=== PATIENT | female | born 1945 | race Caucasian/White ===

== ENCOUNTER → 2016-04-07 | Outpatient (CLI) | payer MEDICARE, OTHER ==
--- NOTE | 2016-04-07 11:07 | XR ---
EXAMINATION TYPE: XR chest 2V DATE OF EXAM: 04/07/2016 10:58 AM COMPARISON: 07/02/14 HISTORY: Shortness of breath TECHNIQUE: Frontal and lateral views of the chest are obtained. FINDINGS: Scattered senescent parenchymal changes noted. Hyperinflation compatible with COPD. No evidence for infiltrate. No evidence for atelectasis. Heart size is stable. Mediastinal structures are stable and grossly unremarkable. No evidence for hilar prominence. Degenerative changes dorsal spine. IMPRESSION: 1. No evidence for acute pulmonary disease.
[2016-04-07 11:24] LABS: ALT 80 U/L (9-52); AST 54 U/L (14-36); Alkaline Phosphatase 84 U/L (38-126); Anion Gap 12 mmol/L; Blood Urea Nitrogen 24 mg/dL (7-17); Calcium 9.5 mg/dL (8.4-10.2); Carbon Dioxide 26 mmol/L (22-30); Chloride 102 mmol/L (98-107); Cholesterol 145 mg/dL (<200); Glucose 271 mg/dL (74-99); HDL Cholesterol 41 mg/dL (40-60); Non-African American GFR(MDRD) >60 (>60 ml/min/1.73 sqM); Potassium 4.2 mmol/L (3.5-5.1); Sodium 140 mmol/L (137-145); Total Bilirubin 0.7 mg/dL (0.2-1.3); Total Protein 7.3 g/dL (6.3-8.2); Triglycerides 138 mg/dL (<150)
[2016-04-07 11:28] LABS: CH 28.6; CHCM 33.9; HDW 2.76; MCH 28.9 pg (25.0-35.0); MCHC 34.2 g/dL (31.0-37.0); MCV 84.6 fL (80.0-100.0); Mean Platelet Volume 8.5; RBC 4.85 m/uL (3.80-5.40); RDW 12.5 % (11.5-15.5); WBC 6.8 k/uL (3.8-10.6)
[2016-04-07 11:57] LABS: Hemoglobin A1C 9.4 % (4.2-6.1)
== END | disposition home or self-care (01) ==
LOC: LABWHC1 10:02
PROVIDERS: ATTEND Internal Medicine
DX: I11.9 Hypertensive heart disease without heart failure (principal); Z00.01 Encounter for general adult medical examination with abnormal findings; E11.9 Type 2 diabetes mellitus without complications; K21.0 Gastro-esophageal reflux disease with esophagitis
CPT/HCPCS: 36415; 71020; 80053; 80061; 83036; 84439; 84443; 85027

== ENCOUNTER 2016-06-17 15:07 | Inpatient (IN) | payer MEDICARE, OTHER ==
--- NOTE | 2016-06-17 15:35 | ED ---
General Adult HPI - General Chief complaint: Chest Pain Stated complaint: Chest Pain Time Seen by Provider: 06/17/16 15:28 Source: patient, RN notes reviewed, old records reviewed Mode of arrival: ambulatory Limitations: no limitations - History of Present Illness Initial comments: This is a 71-year-old female here with anterior chest pain. Mild anterior chest pain for starting today. Patient has history of diabetes has history of high blood pressure. Previous cardiac evaluations have been negative. Patient' s the pain is not made worse with any activity. No shortness of breath no diaphoresis no recent fever or cough or congestion. - Related Data Home Medications Medication Instructions Recorded Confirmed Atenolol [Tenormin] 50 mg PO BID 06/16/14 06/17/16 Hydrochlorothiazide [Hydrodiuril] 25 mg PO DAILY 06/16/14 06/17/16 Lisinopril 40 mg PO DAILY 06/16/14 06/17/16 Pravastatin Sodium [Pravachol] 20 mg PO HS 06/16/14 06/17/16 Loratadine [Claritin] 10 mg PO DAILY PRN 06/17/16 06/17/16 Omeprazole 20 mg PO DAILY 06/17/16 06/17/16 amLODIPine [Norvasc] 5 mg PO DAILY 06/17/16 06/17/16 metFORMIN HCL ER [Glucophage Xr] 500 mg PO BID 06/17/16 06/17/16 sitaGLIPtin [Januvia] 100 mg PO DAILY 06/17/16 06/17/16 Allergies Allergy/AdvReac Type Severity Reaction Status Date / Time adhesive tape Allergy Rash/Hives Verified 06/17/16 15:44 Penicillins Allergy Rash/Hives Verified 06/17/16 15:44 Review of Systems ROS Statement: Those systems with pertinent positive or pertinent negative responses have been documented in the HPI. ROS Other: All systems not noted in ROS Statement are negative. Past Medical History Past Medical History: Asthma, COPD, Diabetes Mellitus, Hypertension History of Any Multi-Drug Resistant Organisms: None Reported Past Surgical History: Section, Cholecystectomy, Hysterectomy Past Psychological History: No Psychological Hx Reported Smoking Status: Never smoker Past Alcohol Use History: None Reported Past Drug Use History: None Reported General Exam Limitations: no limitations General appearance: alert, in no apparent distress Head exam: Present: atraumatic, normocephalic, normal inspection Eye exam: Present: normal appearance, PERRL, EOMI. Absent: scleral icterus, conjunctival injection, periorbital swelling ENT exam: Present: normal exam, mucous membranes moist Neck exam: Present: normal inspection. Absent: tenderness, meningismus, lymphadenopathy Respiratory exam: Present: normal lung sounds bilaterally. Absent: respiratory distress, wheezes, rales, rhonchi, stridor Cardiovascular Exam: Present: regular rate, normal rhythm, normal heart sounds. Absent: systolic murmur, diastolic murmur, rubs, gallop, clicks GI/Abdominal exam: Present: soft, normal bowel sounds. Absent: distended, tenderness, guarding, rebound, rigid Extremities exam: Present: normal inspection, full ROM, normal capillary refill. Absent: tenderness, pedal edema, joint swelling, calf tenderness Back exam: Present: normal inspection Neurological exam: Present: alert, oriented X3, CN II-XII intact Psychiatric exam: Present: normal affect, normal mood Skin exam: Present: warm, dry, intact, normal color. Absent: rash Course Vital Signs 06/17/16 06/17/16 06/17/16 15:27 15:32 16:04 Temperature 97.9 F 97.9 F Pulse Rate 77 77 Respiratory 16 16 16 Rate Blood Pressure 158/73 158/83 O2 Sat by Pulse 98 98 Oximetry - Reevaluation(s) Reevaluation #1: 06/06 patient remained chest pain is improved with morphine 03/25 17:09 EKG Findings - EKG Comments: EKG Findings:: EKG shows normal sinus rhythm rate of 79, [place] 150, QRS 10 2, QTc 442 Medical Decision Making - Medical Decision Making 71 female here for evaluation of chest pain. History of diabetes and hypertension, patient has significant cardiac risk and will be admitted for cardiac observation, she'll troponins, telemetry. EKG H were negative at this time - Lab Data Result diagrams: 06/17/16 15:50 06/17/16 15:50 Lab Results 06/17/16 06/17/16 06/17/16 Range/Units 15:50 15:50 15:50 WBC 7.0 (3.8-10.6) k/uL RBC 4.83 (3.80-5.40) m/uL Hgb 14.1 (11.4-16.0) gm/dL Hct 41.8 (34.0-46.0) % MCV 86.5 (80.0-100.0) fL MCH 29.1 (25.0-35.0) pg MCHC 33.7 (31.0-37.0) g/dL RDW 13.0 (11.5-15.5) % Plt Count 273 (150-450) k/uL Neutrophils % 66 % Lymphocytes % 24 % Monocytes % 5 % Eosinophils % 3 % Basophils % 1 % Neutrophils # 4.6 (1.3-7.7) k/uL Lymphocytes # 1.7 (1.0-4.8) k/uL Monocytes # 0.4 (0-1.0) k/uL Eosinophils # 0.2 (0-0.7) k/uL Basophils # 0.0 (0-0.2) k/uL Sodium 140 (137-145) mmol/L Potassium 4.5 (3.5-5.1) mmol/L Chloride 101 (98-107) mmol/L Carbon Dioxide 27 (22-30) mmol/L Anion Gap 12 mmol/L BUN 19 H (7-17) mg/dL Creatinine 0.88 (0.52-1.04) mg/dL Est GFR (MDRD) Af Amer >60 (>60 ml/min/1.73 sqM) Est GFR (MDRD) Non-Af >60 (>60 ml/min/1.73 sqM) Glucose 218 H (74-99) mg/dL Calcium 9.9 (8.4-10.2) mg/dL Total Bilirubin 0.5 (0.2-1.3) mg/dL AST 59 H (14-36) U/L ALT 81 H (9-52) U/L Alkaline Phosphatase 80 (38-126) U/L Total Creatine Kinase 45 (30-135) U/L CK-MB (CK-2) <0.2 (0.0-2.4) ng/mL CK-MB (CK-2) Rel Index Troponin I <0.012 (0.000-0.034) ng/mL Total Protein 7.3 (6.3-8.2) g/dL Albumin 4.5 (3.5-5.0) g/dL - Radiology Data Radiology results: report reviewed (Chest x-rays negative for acute disease), image reviewed Critical Care Time Critical Care Time: Yes Total Critical Care Time: 31 Disposition Clinical Impression: Chest pain Disposition: ADMITTED IP TO THIS HOSP Condition: Undetermined Instructions: Chest Pain (ED) Referrals: Bruce Strickland MD [Primary Care Provider] - 1-2 days
[2016-06-17 16:19] LABS: Basophils % (A) 1 %; CHCM 33.6; Eosinophils # (A) 0.2 k/uL (0-0.7); Eosinophils % (A) 3 %; HCT 41.8 % (34.0-46.0); HGB 14.1 gm/dL (11.4-16.0); Luc # (Auto) 0.13; Luc % (Auto) 2; Lymphocytes # (A) 1.7 k/uL (1.0-4.8); Lymphocytes % (A) 24 %; MCH 29.1 pg (25.0-35.0); MCHC 33.7 g/dL (31.0-37.0); MCV 86.5 fL (80.0-100.0); Mean Platelet Volume 7.8; Monocytes # (A) 0.4 k/uL (0-1.0); Monocytes % (A) 5 %; Neutrophils # (A) 4.6 k/uL (1.3-7.7); Neutrophils % (A) 66 %; RBC 4.83 m/uL (3.80-5.40); WBC (Perox) 6.54
[2016-06-17 16:30] LABS: Creatine Kinase 45 U/L (30-135)
[2016-06-17 16:33] LABS: ALT 81 U/L (9-52); AST 59 U/L (14-36); Alkaline Phosphatase 80 U/L (38-126); Anion Gap 12 mmol/L; Blood Urea Nitrogen 19 mg/dL (7-17); Calcium 9.9 mg/dL (8.4-10.2); Carbon Dioxide 27 mmol/L (22-30); Chloride 101 mmol/L (98-107); Glucose 218 mg/dL (74-99); Non-African American GFR(MDRD) >60 (>60 ml/min/1.73 sqM); Potassium 4.5 mmol/L (3.5-5.1); Sodium 140 mmol/L (137-145); Total Bilirubin 0.5 mg/dL (0.2-1.3); Total Protein 7.3 g/dL (6.3-8.2)
--- NOTE | 2016-06-17 16:38 | XR ---
EXAMINATION TYPE: XR chest 2V DATE OF EXAM: 06/17/2016 4:24 PM COMPARISON: 04/07/2016 HISTORY: Chest pain TECHNIQUE: Frontal and lateral views of the chest are obtained. FINDINGS: Heart and mediastinum are normal. Lungs are clear. Diaphragm is normal. There are chest le ads. Bony thorax is intact. IMPRESSION: Normal chest. No change.
[2016-06-17 16:43] LABS: Creatine Kinase MB <0.2 ng/mL (0.0-2.4); Troponin I <0.012 ng/mL (0.000-0.034)
[2016-06-17] MEDS ORDERED: MORPHINE SULFATE 4 MG/ML SYRINGE IVP STA (16:43)
[2016-06-17] MEDS ORDERED: HEPARIN SODIUM,PORCINE 5,000 UNIT/ML 1 ML VIAL IV PRN (17:04)
[2016-06-17] MEDS ORDERED: ASPIRIN 81 MG CHEW PO STA (17:04)
[2016-06-17] MEDS ORDERED: NITROGLYCERIN SL TABS 0.4 MG TAB SUBLINGUAL PRN (17:04)
[2016-06-17] MEDS ORDERED: HEPARIN SODIUM,PORCINE 5,000 UNIT/ML 1 ML VIAL IV ONE (17:04)
[2016-06-17] MEDS ORDERED: HEPARIN SODIUM,PORCINE/D5W PMX 25,000 UNIT in DEXTROSE/WATER 1 500ML.BAG IV SCH (17:15)
[2016-06-17] MEDS: SODIUM CHLORIDE 0.9% 1,000 ML IV SCH ×2 (17:29→21:59)
[2016-06-17] MEDS ORDERED: LORATADINE 10 MG TAB PO PRN (18:49)
[2016-06-17] MEDS: ONDANSETRON 4 MG/2 ML VIAL IVP PRN (19:08)
[2016-06-17] MEDS: amLODIPine 5 MG TAB PO SCH (19:38)
[2016-06-17] MEDS: HYDROCHLOROTHIAZIDE 25 MG TAB PO SCH (19:39)
[2016-06-17] MEDS: LISINOPRIL 20 MG TAB PO SCH (19:39)
[2016-06-17 20:43] LABS: Glucose,Whole Blood 227 mg/dL (75-99)
[2016-06-17] MEDS: MORPHINE SULFATE 4 MG/ML SYRINGE IV PRN (20:57)
[2016-06-17] MEDS ORDERED: metFORMIN 500 MG TAB PO SCH (21:00)
[2016-06-17 21:21] VITALS: BMI 37.2
[2016-06-17] MEDS ORDERED: IPRATROPIUM-ALBUTEROL 3 ML NEB INHALATION PRN (21:39)
[2016-06-17] MEDS: PANTOPRAZOLE 40 MG/10 ML VIAL IVP SCH (21:56)
[2016-06-17] MEDS: ATENOLOL 50 MG TAB PO SCH (21:58)
[2016-06-17 22:30] LABS: Creatine Kinase 42 U/L (30-135)
[2016-06-17 22:42] LABS: Creatine Kinase MB <0.2 ng/mL (0.0-2.4); Troponin I <0.012 ng/mL (0.000-0.034)
[2016-06-17] MEDS ORDERED: INSULIN LISPRO (humaLOG) 300 UNIT/3 ML VIAL SQ ONE (22:46)
[2016-06-17 23:14] LABS: Hepatitis C Virus IgG Ab Negative (Negative)
[2016-06-18] MEDS: ONDANSETRON 4 MG/2 ML VIAL IVP PRN ×3 (01:03→20:32)
[2016-06-18] MEDS: MORPHINE SULFATE 4 MG/ML SYRINGE IV PRN ×2 (01:04→09:09)
[2016-06-18 04:38] LABS: Basophils % (A) 1 %; CH 28.8; CHCM 33.5; Eosinophils # (A) 0.2 k/uL (0-0.7); Eosinophils % (A) 3 %; HCT 36.6 % (34.0-46.0); HDW 2.61; HGB 12.1 gm/dL (11.4-16.0); Luc # (Auto) 0.12; Luc % (Auto) 2; Lymphocytes # (A) 2.6 k/uL (1.0-4.8); Lymphocytes % (A) 37 %; MCH 28.5 pg (25.0-35.0); MCHC 33.1 g/dL (31.0-37.0); MCV 86.3 fL (80.0-100.0); Mean Platelet Volume 7.8; Monocytes # (A) 0.3 k/uL (0-1.0); Monocytes % (A) 5 %; Neutrophils # (A) 3.7 k/uL (1.3-7.7); Neutrophils % (A) 53 %; RBC 4.24 m/uL (3.80-5.40); RDW 12.8 % (11.5-15.5); WBC (Perox) 7.47
[2016-06-18 04:56] LABS: ALT 91 U/L (9-52); AST 82 U/L (14-36); Alkaline Phosphatase 75 U/L (38-126); Anion Gap 8 mmol/L; Bilirubin, Delta 0.3 mg/dL (0.0-0.2); Blood Urea Nitrogen 17 mg/dL (7-17); Calcium 8.7 mg/dL (8.4-10.2); Carbon Dioxide 27 mmol/L (22-30); Chloride 104 mmol/L (98-107); Cholesterol 119 mg/dL (<200); Glucose 165 mg/dL (74-99); HDL Cholesterol 41 mg/dL (40-60); Non-African American GFR(MDRD) >60 (>60 ml/min/1.73 sqM); Sodium 139 mmol/L (137-145); Total Bilirubin 0.6 mg/dL (0.2-1.3); Total Protein 6.3 g/dL (6.3-8.2); Triglycerides 164 mg/dL (<150)
[2016-06-18 05:04] LABS: Creatine Kinase 46 U/L (30-135)
[2016-06-18 05:28] LABS: Erythrocyte Sedimentation Rate 13 mm/hr (0-20)
[2016-06-18 05:59] LABS: Hepatitis B Surface Ag Index 0.07
[2016-06-18 06:04] LABS: Hepatitis B Core IgM Index 0.02
[2016-06-18 06:04] LABS: Creatine Kinase MB 0.2 ng/mL (0.0-2.4); Troponin I <0.012 ng/mL (0.000-0.034)
[2016-06-18] MEDS: SODIUM CHLORIDE 0.9% 1,000 ML IV SCH ×2 (06:07→16:51)
[2016-06-18 07:07] LABS: Glucose,Whole Blood 211 mg/dL (75-99)
--- NOTE | 2016-06-18 08:14 | US ---
EXAMINATION TYPE: US abdomen limited DATE OF EXAM: 06/18/2016 8:01 AM COMPARISON: NONE CLINICAL HISTORY: Pain in the abdomen with abnormal liver enzyme. Chest/ABD pain with abnormal LFT's EXAM MEASUREMENTS: Liver Length: 18.1 cm CBD: 1.3 cm Right Kidney: 10.4 x 5.2 x 4.9 cm Large pt body habitus Pancreas: Dilated pancreatic duct= 7mm/ head and tail gassed out Liver: Enlarged, heterogeneous with intrahepatic dilatation Gallbladder: Surgically absent CBD: Dilated Right Kidney: wnl IMPRESSION: 1. Hepatomegaly with hepatic steatosis. 2. Nonspecific dilatation of the pancreatic duct.
[2016-06-18] MEDS ORDERED: PANTOPRAZOLE 40 MG TABLET PO SCH (09:00)
--- NOTE | 2016-06-18 09:36 | HP ---
DATE OF ADMISSION: 06/17/2016 Patient is a 71-year-old white female, . Her height is 5 feet 3 inches. Weight 95.25 kg, BSA 1.97 sq. m, BMI 37.2 kg/sq m with the underlying mild obesity. HER ALLERGIES ARE TO ADHESIVE TAPE AND PENICILLIN. CHIEF COMPLAINT: The patient came to the emergency room seen by Dr. Nelson Lewis, the ER physician, with the complaint that she had recurrent chest pain substernal and radiated to the left side as well. She took 2 aspirin and it did relieve it and then subsequently came back again. When it came back again and was pressure like, she felt uncomfortable and she came to the hospital. HISTORY OF PRESENT ILLNESS: The patient had recurrent chest pain substernal and recurrent. She had history of 6 years ago work-up for cardiac catheterization. However, at that time was negative. The ER physician felt that patient needs to be admitted, work-up with cardiology and further evaluation. Patient admitted to the hospital. The attending physician is Dr. Bruce Strickland. Dictating the history and physical by Dr. Bell as on-call for Dr. Strickland. The patient has underlying past medical history of hyperlipidemia, hypertension as well and she had appeared to have heartburn and GERD associated with that as well and patient since she has been in the hospital did not have any symptoms of chest pain. The patient is also diabetic as well. On the past medical history as mentioned she has history of hypertension, diabetes mellitus type 2 for the last 10-years. She had history of COPD, history of mild obesity, allergy as well and she takes nitroglycerin sublingually, but not recently. FAMILY HISTORY: She is a . She has 3 children; 2 boys and 1 girl. Currently she live alone. She was ambulatory at home. SMOKING HISTORY: She quit 30 years ago and she smoked for almost 20 years, half pack per day. The packs per is 10 pack a year. Patient at that time she came to the hospital, she was placed on heparin IV and admitted to the [facility] on the third the floor. A consultation with cardiology was obtained who will be seeing her in the morning. On the laboratory done on admission was indicating that her white count 7 normal with hemoglobin 14.1, hematocrit 41.8 and her platelet count 273 and no other abnormalities. Her PTT initially 24.2 before starting the heparin. Her sodium 140, potassium 4.5, chloride 101, carbon dioxide 27 and anion gap was 12. Her BUN is 19 and creatinine was 0.88 and her estimated glomerular filtration rate for non- more than 60. Her blood sugar was 218 above the normal, and her repeat blood sugar 227. Her calcium is 9.9 and total bilirubin 0.5, and AST 59, ALT 81 both are abnormal. The etiology of that is unclear at this time. Her alkaline phosphatase is 80. The CK of 45 and CK-MB less than 0.2. Her troponin was less than 0.012 as well. Her total protein 7.3 and albumin 4.5. REVIEW OF SYSTEMS: NEUROPSYCHIATRY: Negative. CARDIOVASCULAR: Negative until she started to have chest pain today. RESPIRATORY: She had a history of cough and has been stated that she had history of COPD in the past. She had no gastrointestinal symptoms. No hematemesis, no melena, no hematochezia as well. She denied any hepatitis in the past. However, she is in the baby boomer age and CBC recommended for checking on hep C, which we will be ordering it. MUSCULOSKELETAL: No symptoms. ENDOCRINE: Only diabetes. CARDIOVASCULAR: As mentioned, hypertension, with currently chest pain, which has been subsided. For diabetes, she is on oral hypoglycemic agent. Review of the 14 points was done and no added to the current finding. PHYSICAL EXAMINATION: Her vital signs indicating that on admission time that her blood pressure was 186/98, mean blood pressure 127, respiratory rate was 18, her pulse ox was normal 98 on 2 L. Subsequently checking the temperature was 98.4 with the pulse rate 71. However, the blood pressure is still elevated at 188/83. Currently at the time seen her blood pressure 165/76. HEENT: Head was normocephalic, atraumatic. Hearing was normal. Nose, no dripping and no discharge. Oropharynx was negative. Pupils equal and reactive. NECK: Supple. No JVD. No thyromegaly. No lymphadenopathy. Trachea midline. CHEST: She has mild kyphosis, but normal breath sounds bilaterally. No wheezes, no rhonchi. HEART: PMI in the fifth intercostal space. Normal S1, S2. No S3 no S4. No gallop. ABDOMEN: Obese, positive bowel sounds. I could not palpate the liver or the spleen at this time. However, her liver enzymes were elevated. EXTREMITIES: No edema. Positive pulses, bilateral and symmetrical. No evidence of diabetic dermopathy. NEURO: Intact. Conscious, alert, oriented x3 and she is able to answer the question. ASSESSMENT: 1. Unstable angina with the patient high risk with diabetes and hypertension. 2. Hypertensive heart disease as well as hypertension not controlled with her current medication. 3. Underlying hyperlipidemia. 4. Underlying abnormal liver enzymes and could be associated with fatty infiltration of the liver versus hepatic steatosis and we will be obtaining ultrasound of the abdomen and pelvis as well as obtaining the liver function tests and BMP and CBC with differential tomorrow. 5. Gastroesophageal reflux disease. Monitoring the blood pressure and further evaluation by Cardiology will be done tomorrow and monitoring her cardiac panel as well as the troponin as well and further judgement with Cardiology will be done in a.m. Patient currently on her medication reviewed again and including the DEEP inhibitor, the beta morgan, the diuretics and statin as well. We will be hoping for control of the blood pressure as she has been on atenolol 50 mg twice a day as well as she on lisinopril 40 mg once a day and that is two family's of antihypertensive medication . We added pantoprazole twice a day IV push and that is for tonight and subsequently will be decreased. Meanwhile, the IV does not have to be very high and we are going to decrease the IV to 50 mL/h an hour as well. The amlodipine is Norvasc and we started 5 mg p.o. t.i.d. for controlling the blood pressure and that can be adjusted later on. Her metformin also was adjusted by reviewing the medication. Further treatment will depend on the cardiology evaluation. Dr. Strickland will be seeing the patient tomorrow for follow-up and if any other abnormality detected or discharge. Patient admitted as I was told on observation.
--- NOTE | 2016-06-18 09:51 | P.CRDCN ---
History of Present Illness Consult date: 06/18/16 History of present illness: This is a 71-year-old female with history of hypertension, diabetes and hypercholesterolemia who awoke up yesterday with complaints of left-sided chest pain in the mammary area with radiation to the back. The pain increases with coughing and also this seemed to be some tenderness in that area. Pain is relieved partially with morphine and seemed to be intermittent. EKGs showed sinus rhythm with poor R-wave progression in the anterior leads without any significant acute changes. Cardiac enzymes are negative. Her chest pains appear to be atypical. However given her risk factor profile, may consider Lexiscan stress test to rule out underlying ischemic heart disease. Apparently she had a cardiac catheterization several years ago and was not found to have significant obstructive disease at the time. Her liver enzymes are mildly elevated but alkaline phosphatase is within normal limits. Ultrasound of the abdomen is negative. Venous duplex study of the leg is negative. Review of Systems As per the chart Past Medical History Past Medical History: Asthma, COPD, Diabetes Mellitus, GERD/Reflux, Hyperlipidemia, Hypertension, Myocardial Infarction (SC), Osteoarthritis (OA) Additional Past Medical History / Comment(s): Hiatal Hernia, colonoscopy 12/2015 , diverticulosis, varicose veins Last Myocardial Infarction Date:: unknown History of Any Multi-Drug Resistant Organisms: None Reported Past Surgical History: Section, Cholecystectomy, Heart Catheterization , Hysterectomy Additional Past Surgical History / Comment(s): Left knee arthroscopy Past Anesthesia/Blood Transfusion Reactions: Motion Sickness Past Psychological History: No Psychological Hx Reported Smoking Status: Former smoker Past Alcohol Use History: None Reported Additional Past Alcohol Use History / Comment(s): 30 years ago Past Drug Use History: None Reported - Past Family History Mother Family Medical History: Hypertension Father Family Medical History: Dementia, Diabetes Mellitus, Hypertension Medications and Allergies Home Medications Medication Instructions Recorded Confirmed Type Atenolol [Tenormin] 50 mg PO BID 06/16/14 06/17/16 History Hydrochlorothiazide [Hydrodiuril] 25 mg PO DAILY 06/16/14 06/17/16 History Lisinopril 40 mg PO DAILY 06/16/14 06/17/16 History Pravastatin Sodium [Pravachol] 20 mg PO HS 06/16/14 06/17/16 History Loratadine [Claritin] 10 mg PO DAILY PRN 06/17/16 06/17/16 History Omeprazole 20 mg PO DAILY 06/17/16 06/17/16 History amLODIPine [Norvasc] 5 mg PO DAILY 06/17/16 06/17/16 History metFORMIN HCL ER [Glucophage Xr] 1,000 mg PO HS 06/17/16 06/17/16 History metFORMIN HCL ER [Glucophage Xr] 500 mg PO DAILY 06/17/16 06/17/16 History sitaGLIPtin [Januvia] 100 mg PO DAILY 06/17/16 06/17/16 History Allergies Allergy/AdvReac Type Severity Reaction Status Date / Time adhesive tape Allergy Rash/Hives Verified 06/17/16 21:23 Penicillins Allergy Rash/Hives Verified 06/17/16 21:23 Physical Exam Vitals: Vital Signs Temp Pulse Pulse Pulse Resp BP BP 06/18/16 07:24 98.1 F 63 18 121/53 06/18/16 04:00 56 L 18 06/18/16 03:48 97.8 F 62 18 122/70 06/18/16 00:00 60 18 06/17/16 23:23 68 18 135/70 06/17/16 20:03 97.4 F L 68 18 165/76 06/17/16 20:00 97.8 F 68 74 18 186/98 06/17/16 19:39 66 18 176/82 06/17/16 19:09 98.4 F 71 16 188/83 06/17/16 17:39 18 186/98 06/17/16 17:35 97.8 F 74 18 186/83 Pulse Ox 06/18/16 07:24 98 06/18/16 04:00 06/18/16 03:48 92 L 06/18/16 00:00 06/17/16 23:23 97 06/17/16 20:03 99 06/17/16 20:00 98 06/17/16 19:39 99 06/17/16 19:09 96 06/17/16 17:39 98 06/17/16 17:35 99 Intake and Output 06/17/16 06/18/16 06/18/16 22:59 06:59 14:59 Intake Total 620 427.323 1.28 Balance 620 427.323 1.28 Intake: Intake, IV Titration 320 427.323 1.28 Amount Heparin Sodium,Porcine/ 160 267.323 1.28 D5w Pmx 25,000 unit In Dextrose/Water 1 500ml. bag @ 10.5 UNITS/KG/HR 19 .9 mls/hr IV .Q24H [facility] Rx #:[id number] Sodium Chloride 0.9% 1, 160 160 000 ml @ 50 mls/hr IV . Q20H [facility] Rx#:[id number] Oral 300 Other: Voiding Method Toilet Toilet # Voids 4 3 Weight 95.254 kg GENERAL EXAM: Patient is alert and oriented and doesn't appear to be in any acute distress HEENT: Normocephalic. Normal reaction of pupils, equal size, normal range of extraocular motion. No erythema or exudates in the throat. NECK: No masses, no nuchal rigidity. CHEST: No chest wall deformity. There is a tenderness on the left side of the chest LUNGS: Equal air entry with no crackles or wheeze. HEART: S1 and S2 normal with no audible mumurs or gallops. Regular rhythm, femorals equal on both sides.. ABDOMEN: No hepatosplenomegaly, normal bowel sounds, no guarding or rigidity. SKIN: No rashes CENTRAL NERVOUS SYSTEM: No focal deficits. EXTREMITIES: No cyanosis, clubbing or edema. Results 06/18/16 03:39 06/18/16 03:39 Cardiac Enzymes 06/17/16 06/18/16 06/18/16 Range/Units 21:48 03:39 03:39 AST 82 H (14-36) U/L CK-MB (CK-2) <0.2 0.2 (0.0-2.4) ng/mL Troponin I <0.012 <0.012 (0.000-0.034) ng/mL Coagulation 06/18/16 Range/Units 03:39 APTT 42.2 H (22.0-30.0) sec Lipids 06/18/16 Range/Units 03:39 Triglycerides 164 H (<150) mg/dL Cholesterol 119 (<200) mg/dL HDL Cholesterol 41 (40-60) mg/dL CBC 06/18/16 Range/Units 03:39 WBC 7.0 (3.8-10.6) k/uL RBC 4.24 (3.80-5.40) m/uL Hgb 12.1 (11.4-16.0) gm/dL Hct 36.6 (34.0-46.0) % Plt Count 240 (150-450) k/uL Comprehensive Metabolic Panel 06/18/16 Range/Units 03:39 Sodium 139 (137-145) mmol/L Potassium 4.0 (3.5-5.1) mmol/L Chloride 104 (98-107) mmol/L Carbon Dioxide 27 (22-30) mmol/L BUN 17 (7-17) mg/dL Creatinine 0.84 (0.52-1.04) mg/dL Glucose 165 H (74-99) mg/dL Calcium 8.7 (8.4-10.2) mg/dL Unconjugated Bilirubin 0.3 (0.0-1.1) mg/dL AST 82 H (14-36) U/L ALT 91 H (9-52) U/L Alkaline Phosphatase 75 (38-126) U/L Total Protein 6.3 (6.3-8.2) g/dL Albumin 3.5 (3.5-5.0) g/dL Current Medications Generic Name Dose Route Start Last Admin Trade Name Freq PRN Reason Stop Dose Admin Albuterol/Ipratropium 3 ml 06/17/16 21:39 Duoneb 0.5 Mg-3 Mg/3 Ml Soln INHALATION RT-QID PRN Shortness Of Breath Or Wheezing Amlodipine Besylate 5 mg 06/17/16 19:00 06/17/16 19:38 Norvasc PO Not Given DAILY [facility] Aspirin 325 mg 06/18/16 09:00 Aspirin PO DAILY [facility] Atenolol 50 mg 06/17/16 21:00 06/17/16 21:58 Tenormin PO 50 mg BID [facility] Administration Atorvastatin Calcium 80 mg 06/18/16 09:00 Lipitor PO DAILY [facility] Heparin Sodium (Porcine) 0 unit 06/17/16 17:04 Heparin IV Q6HR PRN Low PTT Protocol Hydrochlorothiazide 25 mg 06/17/16 19:00 06/17/16 19:39 Hydrodiuril PO Not Given DAILY [facility] Heparin Sodium/Dextrose 25,000 500 mls @ 19.9 mls/hr 06/17/16 17:15 06/18/16 07:00 unit/ IV Solution IV 12.5 units/kg/hr .Q24H [facility] 23.7 mls/hr Protocol Titration 10.5 UNITS/KG/HR Sodium Chloride 1,000 mls @ 100 mls/hr 06/17/16 17:15 06/18/16 06:07 Saline 0.9% IV Not Given .Q10H [facility] Sodium Chloride 1,000 mls @ 50 mls/hr 06/17/16 21:00 06/17/16 21:59 Saline 0.9% IV 50 mls/hr .Q20H [facility] Administration Insulin Human Lispro 0 unit 06/18/16 07:30 Humalog SQ ACHS [facility] Protocol Linagliptin 5 mg 06/18/16 09:00 Tradjenta PO DAILY [facility] Lisinopril 40 mg 06/17/16 19:00 06/17/16 19:39 Zestril PO Not Given DAILY [facility] Loratadine 10 mg 06/17/16 18:49 Claritin PO DAILY PRN Allergy Symptoms Metformin HCl 500 mg 06/18/16 09:00 Glucophage PO DAILY [facility] Morphine Sulfate 4 mg 06/17/16 17:04 06/18/16 09:09 Morphine Sulfate (Inj) IV 4 mg Q4HR PRN Administration Chest Pain Nitroglycerin 0.4 mg 06/17/16 17:04 Nitrostat SUBLINGUAL Q5M PRN Chest Pain Ondansetron HCl 4 mg 06/17/16 18:55 06/18/16 01:03 Zofran IVP 4 mg Q6HR PRN Administration Nausea And Vomiting Pantoprazole Sodium 40 mg 06/17/16 21:00 06/17/16 21:56 Protonix IVP 40 mg BID [facility] Administration Intake and Output 06/17/16 06/18/16 06/18/16 22:59 06:59 14:59 Intake Total 620 427.323 1.28 Balance 620 427.323 1.28 Intake: Intake, IV Titration 320 427.323 1.28 Amount Heparin Sodium,Porcine/ 160 267.323 1.28 D5w Pmx 25,000 unit In Dextrose/Water 1 500ml. bag @ 10.5 UNITS/KG/HR 19 .9 mls/hr IV .Q24H [facility] Rx #:[id number] Sodium Chloride 0.9% 1, 160 160 000 ml @ 50 mls/hr IV . Q20H [facility] Rx#:[id number] Oral 300 Other: Voiding Method Toilet Toilet # Voids 4 3 Weight 95.254 kg 06/18/16 03:39 06/18/16 03:39 EKG Interpretations (text) Sinus rhythm with poor R-wave progression in the anterior leads with T-wave inversions. No acute changes of ischemia Assessment and Plan (1) Hypertension Status: Acute (2) Chest pain Status: Acute (3) Diabetes mellitus Status: Acute (4) Hyperlipidemia Status: Acute Plan: Her chest pains appear to be atypical and possibly musculoskeletal. We will get an echocardiogram to assess LV function. Cardiac enzymes are negative. We' ll consider a Lexiscan stress test on Monday. Increase activity as tolerated
[2016-06-18] MEDS: metFORMIN 500 MG TAB PO SCH (09:57)
[2016-06-18] MEDS: LINAGLIPTIN 5 MG TABLET PO SCH (09:58)
[2016-06-18] MEDS: HYDROCHLOROTHIAZIDE 25 MG TAB PO SCH (09:58)
[2016-06-18] MEDS: LISINOPRIL 20 MG TAB PO SCH (09:58)
[2016-06-18] MEDS: ATENOLOL 50 MG TAB PO SCH ×2 (09:58→20:22)
[2016-06-18] MEDS: PANTOPRAZOLE 40 MG/10 ML VIAL IVP SCH (09:58)
[2016-06-18] MEDS: INSULIN LISPRO (humaLOG) 300 UNIT/3 ML VIAL SQ SCH ×4 (10:12→20:23)
[2016-06-18] MEDS: ATORVASTATIN 80 MG TAB PO SCH (10:24)
[2016-06-18] MEDS: ASPIRIN 325 MG TAB PO SCH (10:24)
[2016-06-18] MEDS: amLODIPine 5 MG TAB PO SCH (10:24)
[2016-06-18 11:52] LABS: Glucose,Whole Blood 241 mg/dL (75-99)
[2016-06-18 16:53] LABS: Glucose,Whole Blood 230 mg/dL (75-99)
[2016-06-18] MEDS: PANTOPRAZOLE 40 MG TABLET PO SCH (17:25)
--- NOTE | 2016-06-18 18:57 | PN ---
DATE OF SERVICE: 06/18/2016 A 71-year-old white female who was brought to the emergency room with complaints of chest pain. She mainly has chest pain on the left anterior chest area and this was radiating to the back. The pain was getting worse with coughing. She also has some tenderness in the left anterior chest. In the emergency room, her EKG did not show any acute changes. The cardiac enzymes also were within normal limits. She has history of diabetes mellitus and hypertensive cardiovascular disease and hyperlipidemia. Patient was admitted to the hospital for further evaluation and treatment. Currently, patient's heart is being monitored with telemetry, serial EKGs and cardiac enzymes were obtained. Enzymes are within normal limits. Vital signs are stable. Her chest pain seems to be atypical. She still has some chest pain and discomfort and tenderness in the left anterior chest. Prior to admission she has been on atenolol, hydrochlorothiazide, lisinopril, Prevacid, loratadine, omeprazole, Norvasc, metformin and Januvia. Currently, she is receiving IV heparin. She was seen by [facility] in consultation and she has been placed back on her previous home medications. Her diabetes is being controlled with NovoLog sliding scale. Her vital signs are stable. There are no acute cardiorespiratory problems. There is no clinical evidence of cardiac decompensation. Cardiology has already seen the patient and is going for echocardiogram today and we are planning to do Lexiscan stress test Monday. This is to rule out ischemic heart disease. The diagnosis, prognosis, and therapeutic plans were discussed in detail with the patient today. As scheduled, she will have Lexiscan stress test Monday.
[2016-06-18 20:13] LABS: Glucose,Whole Blood 202 mg/dL (75-99)
[2016-06-18] MEDS ORDERED: traMADol 50 MG TAB ONE ×2 (21:19→21:30)
[2016-06-19 07:02] LABS: Glucose,Whole Blood 204 mg/dL (75-99)
[2016-06-19 07:11] LABS: Mean Platelet Volume 7.8
[2016-06-19] MEDS: INSULIN LISPRO (humaLOG) 300 UNIT/3 ML VIAL SQ SCH ×4 (08:26→21:59)
[2016-06-19] MEDS: LINAGLIPTIN 5 MG TABLET PO SCH (08:27)
[2016-06-19] MEDS: ATORVASTATIN 80 MG TAB PO SCH (08:27)
[2016-06-19] MEDS: PANTOPRAZOLE 40 MG TABLET PO SCH ×2 (08:27→17:29)
[2016-06-19] MEDS: HYDROCHLOROTHIAZIDE 25 MG TAB PO SCH (08:27)
[2016-06-19] MEDS: amLODIPine 5 MG TAB PO SCH (08:27)
[2016-06-19] MEDS: ASPIRIN 325 MG TAB PO SCH (08:27)
[2016-06-19] MEDS: ATENOLOL 50 MG TAB PO SCH ×2 (08:27→21:59)
[2016-06-19] MEDS: metFORMIN 500 MG TAB PO SCH (08:27)
[2016-06-19] MEDS: LISINOPRIL 20 MG TAB PO SCH (08:27)
[2016-06-19] MEDS: traMADol 50 MG TAB PO PRN ×3 (09:39→23:28)
[2016-06-19 11:14] LABS: Hemoglobin A1C 9.3 % (4.2-6.1)
[2016-06-19 11:54] LABS: Glucose,Whole Blood 196 mg/dL (75-99)
[2016-06-19 16:50] LABS: Glucose,Whole Blood 200 mg/dL (75-99)
[2016-06-19] MEDS: SODIUM CHLORIDE 0.9% 1,000 ML IV SCH (17:25)
[2016-06-19 20:42] LABS: Glucose,Whole Blood 219 mg/dL (75-99)
[2016-06-20 07:03] LABS: Glucose,Whole Blood 186 mg/dL (75-99)
[2016-06-20 07:13] VITALS: RESP 18
[2016-06-20 08:10] LABS: Mean Platelet Volume 7.5
[2016-06-20] MEDS ORDERED: AMINOPHYLLINE 500 MG/20 ML VIAL IV PRN (09:00)
[2016-06-20] MEDS ORDERED: REGADENOSON 0.4 MG/5 ML SYRINGE IV ONE (09:00)
--- NOTE | 2016-06-20 09:39 | PN ---
DATE OF SERVICE: 06/19/2016 This is a 71-year-old white female who was brought to the emergency room with chest pain and EKG did not show any acute changes and cardiac enzymes are within normal limits, and patient was complaining of left anterior chest pain, sometimes it would get worse with the cough but the pain seems to be atypical, but because of the persistent chest pain, patient was admitted to the hospital for further evaluation and treatment. Patient's heart is being monitored with telemetry. Serial EKGs and cardiac enzymes were obtained. The cardiac enzymes were within normal limits. The patient was seen by [facility] in consultation and they recommended to have a Lexiscan stress test and this has been scheduled to be done tomorrow. Patient's vital signs are stable. Heart is in sinus rhythm. Lungs are clear. There are no acute cardiorespiratory problems. Her diabetes is in control with NovoLog sliding scale and vital signs are stable. If the stress test is negative, she will be discharged home when her condition becomes stable.
--- NOTE | 2016-06-20 11:04 | PN ---
Mrs. Burnett is a 71-year-old female who was admitted to the hospital with left side chest pain, which appeared to be musculoskeletal. Cardiac enzymes are negative. The patient's pain is relieved with loratidine. Patient otherwise seemed to be doing clinically stable. Her blood pressure is about 112/57, pulse is 62, respiration 18. Lungs are clear. Heart is regular. Lab values showed stable hemoglobin and electrolytes. FINAL IMPRESSION: Atypical chest pains. PLAN: The patient is given the option of going home and have the outpatient stress test but patient wanted to remain here and have stress test tomorrow. Further recommendations depend upon the findings in the test. DAPHNED
[2016-06-20] MEDS: INSULIN LISPRO (humaLOG) 300 UNIT/3 ML VIAL SQ SCH ×2 (11:09→11:20)
[2016-06-20] MEDS: ATENOLOL 50 MG TAB PO SCH (11:11)
[2016-06-20] MEDS: LISINOPRIL 20 MG TAB PO SCH (11:11)
[2016-06-20] MEDS: HYDROCHLOROTHIAZIDE 25 MG TAB PO SCH (11:11)
[2016-06-20] MEDS: PANTOPRAZOLE 40 MG TABLET PO SCH (11:11)
[2016-06-20] MEDS: ASPIRIN 325 MG TAB PO SCH (11:11)
[2016-06-20] MEDS: ATORVASTATIN 80 MG TAB PO SCH (11:11)
[2016-06-20] MEDS: amLODIPine 5 MG TAB PO SCH (11:11)
[2016-06-20] MEDS: metFORMIN 500 MG TAB PO SCH (11:11)
[2016-06-20] MEDS: LINAGLIPTIN 5 MG TABLET PO SCH (11:11)
[2016-06-20 11:16] LABS: Glucose,Whole Blood 250 mg/dL (75-99)
[2016-06-20] MEDS: SODIUM CHLORIDE 0.9% 1,000 ML IV SCH (11:26)
--- NOTE | 2016-06-20 11:28 | NM ---
EXAMINATION TYPE: NM stress lexiscan cardiolite DATE OF EXAM: 06/20/2016 11:08 AM COMPARISON: NONE HISTORY: 71-year-old female with chest pain TECHNIQUE: After the intravenous administration of 11.0 mCi Tc 99m Sestamibi - Cardiolite resting SP ECT images acquired 45 minutes post injection. The patient received 0.4mg Lexiscan, 27.1 mCi Tc 99m Sestamibi - Stress images obtained [address] injection FINDINGS: Review of stress and rest SPECT images demonstrates decreased perfusion along the mid to apical infer ior wall and apex. However, this decreased tracer activity is more pronounced on rest images. No susp icious area of reversibility is seen. Gated analysis shows augmentation of the inferior wall within o verall normal wall motion and estimated left ventricular ejection fraction of 61 %. TID is calculate d at 0.98, within normal limits. IMPRESSION: Attenuation artifact along the inferior wall and apex. Difficult to exclude a tiny old apical infarct . No suspicious reversibility is seen.
[2016-06-20 11:47] VITALS: BP 131/63; PULSE 64; TEMP 98.1
[2016-06-20 12:22] LABS: Glucose,Whole Blood 242 mg/dL (75-99)
--- NOTE | 2016-06-20 13:48 | EST ---
DATE OF SERVICE: 06/20/16 AGE: 71Y SEX: F HT: 5'3" WT: 209 lbs. Protocol Daniel: Other: X Stage: Dur. of Exercise: *Heart Rate Blood Pressure *Rest: 82 Rest: 179/77 * *Max. Achieved: 103 Maximum BP: 194/77 85% PMHR: 128 100% PMHR: 150 *METS: INDICATIONS: Chest pain. MEDICATIONS: Mrs. Burnett is a 71-year-old female who was admitted to the hospital with chest pains which are atypical. Stress data: Baseline EKG showed sinus rhythm with normal VT interval and QRS duration with some poor R wave progression in the anterior leads. Blood pressure at rest is 190/77. Pulse rate of 80. A standard dose of Lexiscan was infused. EKGs continued to show no changes from the baseline. FINAL IMPRESSION: 1. Negative Lexiscan stress test. 2. Report on the nuclear images to be given by the radiologist
--- NOTE | 2016-07-01 15:43 | ECHOF ---
Referral Reason:Chest pain and cardiomyopathy MEASUREMENTS -------- HEIGHT: 152.4 cm WEIGHT: 95.3 kg BP: 130/60 RVIDd: 3.1 cm (< 3.3) IVSd: 1.1 cm (0.6 - 1.1) LVIDd: 5.3 cm (3.9 - 5.3) LVPWd: 1.0 cm (0.6 - 1.1) IVSs: 1.2 cm LVIDs: 4.8 cm LVPWs: 1.1 cm LA Diam: 4.0 cm (2.7 - 3.8) LAESV Index (A-L): 26.45 ml/m Ao Diam: 2.8 cm (2.0 - 3.7) AV Cusp: 1.7 cm (1.5 - 2.6) LA Diam: 4.4 cm (2.7 - 3.8) MV EXCURSION: 20.477 mm (> 18.000) MV EF SLOPE: 107 mm/s (70 - 150) EPSS: 0.6 cm MV E Abelino: 0.61 m/s MV DecT: 211 ms MV A Abelino: 0.76 m/s MV E/A Ratio: 0.80 RAP: 5.00 mmHg RVSP: 29.84 mmHg FINDINGS -------- Sinus rhythm. This was a technically adequate study. There is mild concentric left ventricular hypertrophy. Overall left ventricular systolic function is low-normal with, an EF between 50 - 55 %. The right ventricle is normal in size. LA is midly dilated 29-33ml/m2. The right atrial size is normal. There is mild aortic valve sclerosis. There is no evidence of aortic regurgitation. Mild mitral annular calcification present. Mild mitral regurgitation is present. Mild tricuspid regurgitation present. There is no evidence of pulmonary hypertension. The right ventricular systolic pressure, as measured by Doppler, is 29.84mmHg. There is no pulmonic regurgitation present. The aortic root size is normal. There is no pericardial effusion. CONCLUSIONS -------- 1. There is mild concentric left ventricular hypertrophy. 2. The aortic root size is normal. 3. Overall left ventricular systolic function is low-normal with, an EF between 50 - 55 %. 4. LA is midly dilated 29-33ml/m2. 5. There is mild aortic valve sclerosis. 6. Mild mitral annular calcification present. 7. Mild mitral regurgitation is present. 8. Mild tricuspid regurgitation present. 9. There is no evidence of pulmonary hypertension. 10. The right ventricular systolic pressure, as measured by Doppler, is 29.84mmHg. CUSTOMER DEVELOPMENT REPRESENTATIVE: Naina Vitale RDCS
--- NOTE | 2016-07-29 13:13 | DS ---
DATE OF ADMISSION: 06/18/2016 DATE OF DISCHARGE: 06/20/2016 FINAL DIAGNOSIS(ES): 1. Chest pain, atypical chest pain. 2. Hypertensive cardiovascular disease. 3. Diabetes mellitus. 4. Hyperlipidemia. 5. Morbid obesity. 6. Gastroesophageal reflux disease. This is a 71-year-old white female who was brought to the emergency room with complaints of chest pain. Chest pain appeared to be atypical with worsening of the chest pain with coughing and also with some tenderness in the left chest wall and patient EKG did not show any acute changes and also cardiac enzymes were within normal limits. The patient was admitted to the hospital for further evaluation and treatment. For details of the physical examination at the time of admission, please refer to the history and physical. HOSPITAL COURSE: Patient was admitted to the hospital and her heart was monitored with telemetry. Serial EKGs and cardiac enzymes were obtained and they were all within normal limits. The patient was placed back on her previous home medications. Patient was seen by [facility] in consultation and they recommended doing a Lexiscan stress test and apparently she had Lexiscan stress test and these were negative. Patient was then discharged home on 06/20/2016 She was advised to continue on her previous home medications includin. Tenormin 50 mg p.o. daily. 2. Hydrochlorothiazide ( ) daily. 3. Lisinopril 40 mg daily. 4. Loratadine 10 mg daily. 5. Omeprazole 20 mg daily. 6. Pravastatin 20 mg p.o. daily. 7. Norvasc 5 mg daily. 8. Metformin 1000 mg daily at bedtime. 9. Metformin 500 mg daily in the a.m. 10. Januvia 100 mg p.o. daily. Detailed discharge instructions were given and she will be seen in my office for follow-up in a week's time.
== END 2016-06-20 15:17 | disposition home or self-care (01) | DRG 313 ==
LOC: EC 15:07 → 3OBS 17:04 → 3SUR 19:34 → OBSVTOIN 06-18 15:39 → 3OBS 06-20 07:48
PROVIDERS: ADMIT Internal Medicine; ATTEND Internal Medicine
PROC: 4A02XM4 Measurement of Cardiac Total Activity, External Approach (ICD-10-PCS; principal; 2016-06-20)
PROC: 3E033HZ Introduction of Radioactive Substance into Peripheral Vein, Percutaneous Approach (ICD-10-PCS; 2016-06-20)
PROC: C22G1ZZ Tomographic (Tomo) Nuclear Medicine Imaging of Myocardium using Technetium 99m (Tc-99m) (ICD-10-PCS; 2016-06-20)
DX: R07.89 Other chest pain (principal); I25.2 Old myocardial infarction; J44.9 Chronic obstructive pulmonary disease, unspecified; I11.9 Hypertensive heart disease without heart failure; E78.5 Hyperlipidemia, unspecified; R74.8 Abnormal levels of other serum enzymes; E66.9 Obesity, unspecified; E11.9 Type 2 diabetes mellitus without complications; E78.00 Pure hypercholesterolemia, unspecified; K57.90 Diverticulosis of intestine, part unspecified, without perforation or abscess without bleeding; I83.90 Asymptomatic varicose veins of unspecified lower extremity; K44.9 Diaphragmatic hernia without obstruction or gangrene; M19.90 Unspecified osteoarthritis, unspecified site; K21.9 Gastro-esophageal reflux disease without esophagitis; Z68.37 Body mass index [BMI] 37.0-37.9, adult; Z87.891 Personal history of nicotine dependence; Z83.3 Family history of diabetes mellitus; Z88.0 Allergy status to penicillin; Z79.899 Other long term (current) drug therapy; Z82.49 Family history of ischemic heart disease and other diseases of the circulatory system; Z79.84 Long term (current) use of oral hypoglycemic drugs; Z91.048 Other nonmedicinal substance allergy status; Z71.3 Dietary counseling and surveillance; Z90.49 Acquired absence of other specified parts of digestive tract; Z90.710 Acquired absence of both cervix and uterus; Z81.8 Family history of other mental and behavioral disorders
CPT/HCPCS: 36415; 71020; 76705; 78452; 80048; 80053; 80061; 80074; 80076; 82550; 82553; 83036; 84484; 85025; 85049; 85652; 85730; 93005; 93017; 93306; 96365; 96366; 96375; 96376; 99291

== ENCOUNTER → 2016-07-14 | Outpatient (CLI) | payer MEDICARE, OTHER ==
[2016-07-14 09:44] LABS: Anion Gap 9 mmol/L; Blood Urea Nitrogen 21 mg/dL (7-17); Calcium 9.4 mg/dL (8.4-10.2); Carbon Dioxide 25 mmol/L (22-30); Chloride 105 mmol/L (98-107); Glucose 196 mg/dL (74-99); Non-African American GFR(MDRD) >60 (>60 ml/min/1.73 sqM); Potassium 4.1 mmol/L (3.5-5.1); Sodium 139 mmol/L (137-145)
== END | disposition home or self-care (01) ==
LOC: LABWHC1 08:52
PROVIDERS: ATTEND Internal Medicine
DX: I11.9 Hypertensive heart disease without heart failure (principal); E11.9 Type 2 diabetes mellitus without complications
CPT/HCPCS: 36415; 80048

== ENCOUNTER → 2016-10-25 | Outpatient (CLI) | payer MEDICARE, OTHER ==
--- NOTE | 2016-11-03 08:20 | MM ---
Reason for exam: screening (asymptomatic). Last mammogram was performed 3 years and 2 months ago. Physical Findings: Nurse did not find any significant physical abnormalities on exam. MG 3D Screening Mammo W/Cad Bilateral CC and MLO view(s) were taken. Prior study comparison: August 22, 2013, mammogram, performed at [facility]. May 09, 2012, mammogram, performed at [facility]. There are scattered fibroglandular densities. Finding: There is a 6 mm circumscribed oval mass located 4 cm from the nipple in the upper outer quadrant, anterior position of the right breast. New finding since August 22, 2013 and May 09, 2012. ASSESSMENT: Incomplete: need additional imaging evaluation, BI-RAD 0 RECOMMENDATION: Ultrasound of the right breast. [facility] will attempt to contact patient to return for ultrasound.
== END | disposition home or self-care (01) ==
LOC: RADMAMWWP 13:44
PROVIDERS: ATTEND Internal Medicine
DX: Z12.31 Encounter for screening mammogram for malignant neoplasm of breast (principal)
CPT/HCPCS: 77063; G0202

== ENCOUNTER → 2016-10-27 | Outpatient (CLI) | payer MEDICARE, OTHER ==
--- NOTE | 2016-10-27 11:05 | USB ---
Reason for exam: additional evaluation requested from abnormal screening. Physical Findings: Nurse did not find any significant physical abnormalities on exam. US Breast Workup Limited RT Right breast ultrasound demonstrates a 4 x 3 x 4mm cystic lesion at 10 o'clock with increased through transmission corresponds to the mammographic finding. These results were verbally communicated with the patient and result sheet given to the patient on 10/27/16. ASSESSMENT: Benign, BI-RAD 2 RECOMMENDATION: Routine screening mammogram of both breasts in 1 year.
== END | disposition home or self-care (01) ==
LOC: RADUSWWP 10:17
PROVIDERS: ATTEND Internal Medicine
DX: R92.8 Other abnormal and inconclusive findings on diagnostic imaging of breast (principal)

== ENCOUNTER → 2017-03-21 | Outpatient (CLI) | payer MEDICARE, OTHER ==
[2017-03-21 11:20] LABS: HCT 38.7 % (34.0-46.0); HGB 12.7 gm/dL (11.4-16.0); MCH 27.7 pg (25.0-35.0); MCHC 32.7 g/dL (31.0-37.0); MCV 84.5 fL (80.0-100.0); Mean Platelet Volume 7.2; Platelet Count 262 k/uL (150-450); RBC 4.57 m/uL (3.80-5.40); WBC 6.8 k/uL (3.8-10.6)
[2017-03-21 11:24] LABS: ALT 35 U/L (9-52); AST 25 U/L (14-36); Albumin 3.8 g/dL (3.5-5.0); Alkaline Phosphatase 71 U/L (38-126); Anion Gap 11 mmol/L; Blood Urea Nitrogen 15 mg/dL (7-17); Calcium 9.4 mg/dL (8.4-10.2); Carbon Dioxide 28 mmol/L (22-30); Chloride 104 mmol/L (98-107); Cholesterol 133 mg/dL (<200); Glucose 173 mg/dL (74-99); HDL Cholesterol 45 mg/dL (40-60); LDL Cholesterol,Calculated 68 mg/dL (0-99); Sodium 143 mmol/L (137-145); Total Bilirubin 0.4 mg/dL (0.2-1.3); Total Protein 6.6 g/dL (6.3-8.2); Triglycerides 98 mg/dL (<150)
[2017-03-21 11:39] LABS: T4, Free (Free Thyroxine) 1.23 ng/dL (0.78-2.19)
[2017-03-21 17:23] LABS: Hemoglobin A1C 7.3 % (4.0-6.0)
== END | disposition home or self-care (01) ==
LOC: LABWHC1 10:11
PROVIDERS: ATTEND Internal Medicine
DX: Z00.01 Encounter for general adult medical examination with abnormal findings (principal); E11.9 Type 2 diabetes mellitus without complications; E78.2 Mixed hyperlipidemia; I11.9 Hypertensive heart disease without heart failure
CPT/HCPCS: 36415; 80053; 80061; 83036; 84439; 84443; 85027

== ENCOUNTER → 2017-10-04 | Outpatient (CLI) | payer MEDICARE, OTHER ==
[2017-10-04 10:09] LABS: MCH 27.7 pg (25.0-35.0); MCHC 32.6 g/dL (31.0-37.0); MCV 85.1 fL (80.0-100.0); Mean Platelet Volume 7.2; Platelet Count 314 k/uL (150-450); RBC 4.71 m/uL (3.80-5.40); WBC 8.1 k/uL (3.8-10.6)
[2017-10-04 10:16] LABS: Albumin 4.2 g/dL (3.5-5.0); Calcium 9.7 mg/dL (8.4-10.2); Potassium 4.6 mmol/L (3.5-5.1); Total Bilirubin 0.5 mg/dL (0.2-1.3); Total Protein 7.3 g/dL (6.3-8.2)
== END | disposition home or self-care (01) ==
LOC: LABWHC1 09:45
PROVIDERS: ATTEND Internal Medicine
DX: Z00.01 Encounter for general adult medical examination with abnormal findings (principal); E11.9 Type 2 diabetes mellitus without complications; E78.2 Mixed hyperlipidemia; I11.9 Hypertensive heart disease without heart failure
CPT/HCPCS: 36415; 80053; 80061; 82043; 82570; 83036; 85027

== ENCOUNTER → 2018-05-22 | Outpatient (CLI) | payer MEDICARE, OTHER ==
[2018-05-22 15:40] VITALS: BP 167/71; PULSE 86; RESP 16; TEMP 96.7; BMI 35.0
--- NOTE | 2018-05-22 17:05 | P.HPOB ---
History of Present Illness H&P Date: 05/22/18 Chief Complaint: The patient is here for her routine gynecologic exam and ma mmogram. This is a 73-year-old G3 PIII within LMP of approximately 1991. The patient is status post hysterectomy for uterine fibroids. She previously saw Dr. Underwood any years ago. Her last pelvic exam was about 7 years ago. She is experiencing some vulvar pruritis during the last 2 days. Review of Systems She states her weight can fluctuate by plus or minus 5 pounds. She denies respiratory, cardiac and G.I. problems. She denies maltreatment or problems with falling. : she denies any significant problems with urinary leakage. Past Medical History Past Medical History: Asthma, COPD, Diabetes Mellitus, GERD/Reflux, Hyperlipidemia, Hypertension, Myocardial Infarction ([place]), Osteoarthritis (OA) Additional Past Medical History / Comment(s): Type II diabetes ,Hiatal Hernia, diverticulosis, varicose veins. Last Myocardial Infarction Date:: unknown History of Any Multi-Drug Resistant Organisms: None Reported Past Surgical History: Section, Cholecystectomy, Heart Catheterization, Hysterectomy Additional Past Surgical History / Comment(s): Left knee arthroscopy. Hysterectomy approx 1991. Colonoscopy 2016(2nd). Past Anesthesia/Blood Transfusion Reactions: Motion Sickness Past Psychological History: No Psychological Hx Reported Smoking Status: Former smoker Past Alcohol Use History: None Reported Additional Past Alcohol Use History / Comment(s): 30 years ago Past Drug Use History: None Reported Additional History: Quit smoking in 1989. times 2. She is currently not seeing anybody at this time. She is a retired [employer] administrator. - Past Family History Mother Family Medical History: COPD, Hypertension Father Family Medical History: Dementia, Diabetes Mellitus, Hypertension Additional Family Medical History / Comment(s): Heart disease. Aunt Family Medical History: Cancer Additional Family Medical History / Comment(s): Lung cancer. Medications and Allergies Home Medications Medication Instructions Recorded Confirmed Type Atenolol [Tenormin] 50 mg PO BID 06/16/14 05/22/18 History Hydrochlorothiazide [Hydrodiuril] 25 mg PO DAILY 06/16/14 05/22/18 History Lisinopril 40 mg PO DAILY 06/16/14 05/22/18 History Pravastatin Sodium [Pravachol] 20 mg PO HS 06/16/14 05/22/18 History Loratadine [Claritin] 10 mg PO DAILY PRN 06/17/16 05/22/18 History Omeprazole 20 mg PO DAILY 06/17/16 05/22/18 History amLODIPine [Norvasc] 5 mg PO DAILY 06/17/16 05/22/18 History metFORMIN HCL ER [Glucophage Xr] 1,000 mg PO HS 06/17/16 05/22/18 History metFORMIN HCL ER [Glucophage Xr] 500 mg PO DAILY 06/17/16 05/22/18 History sitaGLIPtin [Januvia] 100 mg PO DAILY 06/17/16 05/22/18 History Allergies Allergy/AdvReac Type Severity Reaction Status Date / Time adhesive tape Allergy Rash/Hives Verified 05/22/18 15:34 Penicillins Allergy Rash/Hives Verified 05/22/18 15:34 Exam Vital Signs Temp Pulse Resp BP Pulse Ox 05/22/18 15:36 96.7 F L 86 16 167/71 98 Intake and Output 05/22/18 05/22/18 05/22/18 06:59 14:59 22:59 Other: Weight 92.533 kg Height 5'4", weight 204 pounds, BMI 35.0. This is a well-developed well-nourished white female who is alert and oriented times 3 in no acute distress. HEENT: Within normal limits. NECK: Supple without mass or thyromegaly. CHEST AND LUNGS: Clear to auscultation. HEART: Regular rate and rhythm. BREASTS: Are without mass or discharge. AXILLARY EXAM: Negative for adenopathy. BACK: Negative for CVA tenderness. ABDOMEN: Soft, nontender, without palpable masses. PELVIC EXAM: External genitalia reveals generalized erythema with moderate atrophy. The erythema is fairly well demarcated with a fairly straight line anteriorly on both sides which is symmetric. There are no focal lesions. V agina appears normal with mild atrophy. There is no unusual discharge. There is no evidence of prolapse. Bimanual examination is negative for mass or tenderness. RECTAL EXAM: rectal exam was refused by the patient. EXTREMITIES: Nontender. IMPRESSION: 1. 73-year-old menopausal female with vulvar erythema consistent with acute vulvitis with no evidence of vaginitis. Because of the straight line demarcation at it's an interior border, it seems likely that this may be related to pad to use. Other possibilities would include lichen sclerosis, however this lacks the typical pallor. Radha vaginitis with vulvitis is also possible, but lacks any vaginal discharge. PLAN: 1. Pap smears have been discontinued. 2. Self breast awareness was discussed with the patient. 3. Screening mammogram will be done today. 4. Kenalog 0.1% cream BID PRN to the external vulva. The prescription will be sent electronically to [facility]. She is also advised to not over wash and to see if there is something coming in contact with the skin that is irritating the vulvar area. She was instructed to make an appointment for reevaluation if the symptoms do not improve. 5. I have recommended checking her own blood pressure on a regular basis and to follow-up with Dr. Strickland for blood pressure elevations. 6.Osteoporosis prevention was discussed. I have stressed the importance of adequate calcium, vitamin D and regular exercise. Recommended amounts of calcium and vitamin D were also discussed. I have recommended bone density screenings since she has never had this done. She would like to wait until next year to have this done at her next annual exam. 7.She was advised to return in one year for her annual well woman exam.
--- NOTE | 2018-05-24 11:12 | MM ---
Reason for exam: screening (asymptomatic). Last mammogram was performed 1 year and 7 months ago. Physical Findings: A clinical breast exam by your physician is recommended on an annual basis and results should be correlated with mammographic findings. MG Screening Mammo w CAD Bilateral CC and MLO view(s) were taken. Prior study comparison: October 25, 2016, bilateral MG 3d screening mammo w/cad. August 22, 2013, mammogram, performed at [facility]. No significant changes when compared with prior studies. ASSESSMENT: Benign, BI-RAD 2 RECOMMENDATION: Routine screening mammogram of both breasts in 1 year.
== END | disposition home or self-care (01) ==
LOC: WWCWWP 15:17
PROVIDERS: ATTEND Obstetrics & Gynecology
DX: Z12.31 Encounter for screening mammogram for malignant neoplasm of breast (principal)
CPT/HCPCS: 77067

== ENCOUNTER 2018-08-30 19:08 | Emergency (ER) | payer MEDICARE, OTHER ==
[2018-08-30 19:14] VITALS: BP 151/76; PULSE 83; RESP 16; TEMP 98.6
[2018-08-30 19:39] LABS: Appearance,Urine Cloudy (Clear); Bilirubin,Urine 1+ (Negative); Blood,Urine Moderate (Negative); Color,Urine Dark Brown; Glucose,Urine (UA) Negative (Negative); Ketones,Urine Negative (Negative); Leukocyte Esterase,Urine Large (Negative); Nitrite,Urine Positive (Negative); Protein,Urine 1+ (Negative); RBC,Urine 33 /hpf (0-5); Specific Gravity,Urine 1.014 (1.001-1.035); Squamous Epithelial Cell,Urine 2 /hpf (0-4); WBC,Urine 165 /hpf (0-5)
--- NOTE | 2018-08-30 19:41 | ED ---
Female Urogenital HPI - General Chief complaint: Urogenital Stated complaint: UTI Time Seen by Provider: 08/30/18 19:16 Source: patient Mode of arrival: ambulatory Limitations: no limitations - History of Present Illness Initial comments: Patient is a 73-year-old female presenting to emergency Department with a burning sensation when pain patient reports a depressed today she noticed increased urgency, frequency or dysuria. Patient also reports over the last day she has developed mild suprapubic pain that is exacerbated with palpation and alleviated when laying supine. Patient denies vaginal discharge or bleeding. Patient reports abdominal pain is sharp in nature and a 7. Patient denies taking medication to alleviate his symptoms. Patient denies fever, chills, nausea, vomiting or diarrhea. Patient denies hematuria, hematochezia or melena. - Related Data Home Medications Medication Instructions Recorded Confirmed Atenolol [Tenormin] 50 mg PO BID 06/16/14 08/30/18 Hydrochlorothiazide [Hydrodiuril] 25 mg PO DAILY 06/16/14 08/30/18 Lisinopril 40 mg PO DAILY 06/16/14 08/30/18 Pravastatin Sodium [Pravachol] 20 mg PO HS 06/16/14 08/30/18 Loratadine [Claritin] 10 mg PO DAILY 06/17/16 08/30/18 Omeprazole 20 mg PO DAILY 06/17/16 08/30/18 amLODIPine [Norvasc] 5 mg PO DAILY 06/17/16 08/30/18 sitaGLIPtin [Januvia] 100 mg PO DAILY 06/17/16 08/30/18 metFORMIN HCL [Glucophage] 1,000 mg PO HS 08/30/18 08/30/18 metFORMIN HCL [Glucophage] 500 mg PO DAILY 08/30/18 08/30/18 Previous Rx's Medication Instructions Recorded Ciprofloxacin HCl [Cipro] 500 mg PO Q12HR #20 tablet 08/30/18 Allergies Allergy/AdvReac Type Severity Reaction Status Date / Time adhesive tape Allergy Rash/Hives Verified 08/30/18 20:04 Penicillins Allergy Rash/Hives Verified 08/30/18 20:04 Review of Systems ROS Statement: Those systems with pertinent positive or pertinent negative responses have been documented in the HPI. ROS Other: All systems not noted in ROS Statement are negative. Past Medical History Past Medical History: Asthma, COPD, Diabetes Mellitus, GERD/Reflux, Hyperlipidemia, Hypertension, Myocardial Infarction ([place]), Osteoarthritis (OA) Additional Past Medical History / Comment(s): Type II diabetes ,Hiatal Hernia, diverticulosis, varicose veins. Last Myocardial Infarction Date:: unknown History of Any Multi-Drug Resistant Organisms: None Reported Past Surgical History: Section, Cholecystectomy, Heart Catheterization, Hysterectomy Additional Past Surgical History / Comment(s): Left knee arthroscopy. Hysterectomy approx 1992. Colonoscopy 2016(2nd). Past Anesthesia/Blood Transfusion Reactions: Motion Sickness Past Psychological History: No Psychological Hx Reported Smoking Status: Former smoker Past Alcohol Use History: None Reported Past Drug Use History: None Reported - Past Family History Mother Family Medical History: COPD, Hypertension Father Family Medical History: Dementia, Diabetes Mellitus, Hypertension Additional Family Medical History / Comment(s): Heart disease. Aunt Family Medical History: Cancer Additional Family Medical History / Comment(s): Lung cancer. General Exam Limitations: no limitations General appearance: alert, in no apparent distress, obese Head exam: Present: atraumatic, normocephalic, normal inspection Eye exam: Present: normal appearance, PERRL, EOMI Pupils: Present: normal accommodation ENT exam: Present: normal exam, normal oropharynx, mucous membranes moist, TM's normal bilaterally, normal external ear exam Neck exam: Present: normal inspection, full ROM Respiratory exam: Present: normal lung sounds bilaterally. Absent: respiratory distress Cardiovascular Exam: Present: regular rate, normal rhythm, normal heart sounds GI/Abdominal exam: Present: soft, tenderness (Suprapubic), normal bowel sounds, other (Negative Khan sign, negative McBurney point tenderness negative Rovsing and psoas). Absent: guarding, rebound Extremities exam: Present: normal inspection, full ROM Back exam: Present: normal inspection, full ROM. Absent: CVA tenderness (R), CVA tenderness (L) Neurological exam: Present: alert, oriented X3 Psychiatric exam: Present: normal affect, normal mood Skin exam: Present: warm, intact, normal color Course Vital Signs 08/30/18 19:12 Temperature 98.6 F Pulse Rate 83 Respiratory 16 Rate Blood Pressure 151/76 O2 Sat by Pulse 97 Oximetry Medical Decision Making - Medical Decision Making Patient is 73-year-old female presents emergency Department with burning sensation when urinating. UA is showing a UTI. Patient's vitals are stable. Patient was given one dose of Cipro in the ED. Patient will be discharged with a 10 day course of Cipro. Patient advised about the possible side effects of Cipro. Patient advised to follow with primary care. Strict return parameters were thoroughly discussed the patient was understanding and agreeable. Case discussed with physician. - Lab Data Lab Results 08/30/18 Range/Units 19:23 Urine Color Dark Brown Urine Appearance Cloudy H (Clear) Urine pH 6.0 (5.0-8.0) Ur Specific [place] 1.014 (1.001-1.035) Urine Protein 1+ H (Negative) Urine Glucose (UA) Negative (Negative) Urine Ketones Negative (Negative) Urine Blood Moderate H (Negative) Urine Nitrite Positive H (Negative) Urine Bilirubin 1+ H (Negative) Urine Urobilinogen 4.0 (<2.0) mg/dL Ur Leukocyte Esterase Large H (Negative) Urine RBC 33 H (0-5) /hpf Urine WBC 165 H (0-5) /hpf Ur Squamous Epith Cells 2 (0-4) /hpf Disposition Clinical Impression: Urinary tract infection Disposition: HOME SELF-CARE Condition: Good Instructions (If sedation given, give patient instructions): Urinary Tract Infection in Women (ED) Prescriptions: Ciprofloxacin HCl [Cipro] 500 mg PO Q12HR #20 tablet Is patient prescribed a controlled substance at d/c from ED?: No Referrals: Eugene Bingham MD [Primary Care Provider] - 1-2 days Time of Disposition: 21:00
[2018-08-30] MEDS ORDERED: CIPROFLOXACIN HCL 500 MG TAB PO STA (19:53)
== END 2018-08-30 20:06 | disposition home or self-care (01) ==
LOC: EC 19:08
DX: N39.0 Urinary tract infection, site not specified (principal); E11.9 Type 2 diabetes mellitus without complications; K21.9 Gastro-esophageal reflux disease without esophagitis; E78.5 Hyperlipidemia, unspecified; I10 Essential (primary) hypertension; I25.2 Old myocardial infarction; Z87.891 Personal history of nicotine dependence; Z88.0 Allergy status to penicillin; Z91.048 Other nonmedicinal substance allergy status; Z79.84 Long term (current) use of oral hypoglycemic drugs; Z79.899 Other long term (current) drug therapy; Z90.49 Acquired absence of other specified parts of digestive tract; Z95.818 Presence of other cardiac implants and grafts
CPT/HCPCS: 81001; 99284

== ENCOUNTER → 2018-10-31 | Outpatient (CLI) | payer MEDICARE, OTHER ==
[2018-10-31 10:08] LABS: HCT 37.9 % (34.0-46.0); HGB 13.3 gm/dL (11.4-16.0); MCHC 35.1 g/dL (31.0-37.0); MCV 82.5 fL (80.0-100.0); Mean Platelet Volume 7.6; Platelet Count 336 k/uL (150-450); RDW 13.6 % (11.5-15.5); WBC 7.8 k/uL (3.8-10.6)
[2018-10-31 17:21] LABS: Albumin 4.3 g/dL (3.80-4.90); Albumin/Globulin Ratio 1.95 (1.60-3.17); Anion Gap 13.2 mmol/L (4.00-12.00); BUN/Creat Ratio 21.11 Ratio (12.00-20.00); Calcium 9.1 mg/dL (8.7-10.3); Carbon Dioxide 26.8 mmol/L (21.6-31.8); Chol/HDL Ratio 3.51; Globulin 2.2 g/dL (1.6-3.3); LDL Cholesterol,Calculated 72.8 mg/dL (0.0-131.0); Potassium 3.8 mmol/L (3.5-5.5); Total Bilirubin 0.4 mg/dL (0.3-1.2); Total Protein 6.5 g/dL (6.2-8.2); VLDL Calculation 30.2 mg/dL (5.00-40.00)
[2018-10-31 18:30] LABS: Hemoglobin A1C 7.7 % (4.0-6.0)
== END | disposition home or self-care (01) ==
LOC: LABWHC1 08:40
PROVIDERS: ATTEND Internal Medicine
DX: E78.2 Mixed hyperlipidemia (principal); E11.9 Type 2 diabetes mellitus without complications
CPT/HCPCS: 36415; 80053; 80061; 82043; 82570; 83036; 85027

== ENCOUNTER → 2019-03-05 | Outpatient (CLI) | payer MEDICARE, OTHER ==
[2019-03-05 18:12] LABS: Albumin 4.5 g/dL (3.80-4.90); Albumin/Globulin Ratio 2.05 (1.60-3.17); Anion Gap 12.8 mmol/L (4.00-12.00); Calcium 9.2 mg/dL (8.7-10.3); Carbon Dioxide 27.2 mmol/L (21.6-31.8); Globulin 2.2 g/dL (1.6-3.3); Non-African American GFR(CKD) 63.9 (60.0-200.0); Potassium 3.8 mmol/L (3.5-5.5); Total Bilirubin 0.4 mg/dL (0.2-1.2); Total Protein 6.7 g/dL (6.2-8.2)
[2019-03-05 19:36] LABS: Hemoglobin A1C 7.3 % (4.0-6.0)
== END | disposition home or self-care (01) ==
LOC: LABWHC1 09:33
PROVIDERS: ATTEND Internal Medicine
DX: E11.9 Type 2 diabetes mellitus without complications (principal)
CPT/HCPCS: 36415; 80053; 83036

== ENCOUNTER → 2021-12-13 | Outpatient (CLI) | payer MEDICARE, OTHER ==
--- NOTE | 2021-12-14 08:46 | MM ---
Reason for Exam: Screening (asymptomatic). Last mammogram was performed 3 year(s) and 7 month(s) ago. Patient History: Menarche at age 14. First Full-Term at age 22. Hysterectomy at age 46. Risk Values: Lois 5 year model risk: 1.6%. NCI Lifetime model risk: 3.4%. Prior Study Comparison: 08/22/2013 Screening Mammogram, [facility]. 10/25/2016 Bilateral Screening Mammogram, [facility]. 05/22/2018 Bilateral Screening Mammogram, [facility]. Tissue Density: There are scattered fibroglandular densities. Findings: Analyzed By CAD. There is no suspicious group of microcalcifications or new suspicious mass in either breast. Overall Assessment: Negative, BI-RAD 1 Management: Screening Mammogram of both breasts in 1 year. A clinical breast exam by your physician is recommended on an annual basis and results should be correlated with mammographic findings. [facility] will attempt to contact patient to return for supplemental views and ultrasound if indicated. Electronically signed and approved by: Ian Enrique DO
== END | disposition home or self-care (01) ==
LOC: RADMAMWWP 12:55
PROVIDERS: ATTEND Family Medicine
DX: Z12.31 Encounter for screening mammogram for malignant neoplasm of breast (principal)
CPT/HCPCS: 77063; 77067